=== PATIENT | female | born 1965 | race Asian ===

== ENCOUNTER 2019-07-23 10:34 | Emergency (ER) | payer OTHER ==
[~2019-07-23] VITALS: Ht 160 cm; Wt 59.0 kg
[2019-07-23 10:40] VITALS: Ht 160 cm; Wt 59.0 kg
[2019-07-23 13:04] VITALS: BP 127/80
== END 2019-07-23 13:04 | disposition home or self-care (01) ==
LOC: ED 10:34
DX: S82.831A Other fracture of upper and lower end of right fibula, initial encounter for closed fracture (principal); W01.0XXA Fall on same level from slipping, tripping and stumbling without subsequent striking against object, initial encounter; Y93.01 Activity, walking, marching and hiking; Y92.89 Other specified places as the place of occurrence of the external cause; Y99.8 Other external cause status